=== PATIENT | female | born 1960 | race Caucasian/White ===

== ENCOUNTER 2017-04-13 14:09 | Emergency (ER) | payer BC ==
[~2017-04-13] VITALS: Ht 170.2 cm; Wt 145.2 kg
--- OUTSIDE RECORDS SUMMARY | 2017-04-13 14:16 | External Medical Summary Rpt ---
Author Author [employer] Organization [employer] Address Unknown Phone Unavailable Purpose Continuity of Care Document - through 2016
--- OUTSIDE RECORDS SUMMARY | 2017-04-13 14:16 | External Medical Summary Rpt ---
Author Author DK Address Unknown Phone [email or web address] Purpose Continuity of Care Document - 02-14-2017 through 2016 Problems Code Diagnosis DOS Provider Status I89.0 LYMPHEDEMA, 02-14-2017 NOT ELSEWHERE CLASSIFIED R60.9 EDEMA, 02-14-2017 UNSPECIFIED
--- OUTSIDE RECORDS SUMMARY | 2017-04-13 14:16 | External Medical Summary Rpt ---
Author Author DK Address Unknown Phone [email or web address] Purpose Continuity of Care Document - 02-14-2017 through 2016 Problems Code Diagnosis DOS Provider Status I89.0 LYMPHEDEMA, 02-14-2017 NOT ELSEWHERE CLASSIFIED R60.9 EDEMA, 02-14-2017 UNSPECIFIED
--- OUTSIDE RECORDS SUMMARY | 2017-04-13 14:17 | External Medical Summary Rpt ---
Author Author DK Chavarria, [employer] Organization [employer] Address Unknown Phone Unavailable
--- OUTSIDE RECORDS SUMMARY | 2017-04-13 14:17 | External Medical Summary Rpt ---
Demographics Preferred Language Chinese Marital Status Unknown Islam Affiliation Unknown Race Unknown Ethnic Group Unknown Author Author , DK ROOT Address Unknown Phone Immunization Unable to retrieve immunization data due to connection failure with Immunization Registry. Please try again later.
--- OUTSIDE RECORDS SUMMARY | 2017-04-13 14:17 | External Medical Summary Rpt ---
Demographics Preferred Language Wolof Marital Status Unknown Latter Day Affiliation Unknown Race Unknown Ethnic Group Unknown Author Author , DK ROOT Address Unknown Phone Immunization Unable to retrieve immunization data due to connection failure with Immunization Registry. Please try again later.
--- NOTE | 2017-04-13 14:57 | Urgent Treatment Center Report ---
History of Present Issue Date/Time Seen by Provider 04/13/17 1428 Visit Reason Pt arrived:Walked Presenting Problem:PT STATES POISON CLAUDIA TO FOREHEAD AND LEFT WRIST Location if Accident: Onset of symptoms date/time:/ or onset unknown for:MEDICAL HX UNKNOWN Have you (or family members/close friends) recently traveled outside the [place]? N If Yes, where/when: Have you had exposure to infectious disease within the past month? TB? Other? Specify: Patient state that she recently was working outside and she got into some weeds statse that she noticed that she was having poison claudia on her forehead, wrist and now today she noticed it on her legs states that she got worried where the poison claudia was close to her eye brow area that it would get into her eye so she came in to get treated ALLERGIES Coded Allergies: latex (04/13/17) Home Medications Reported Medications No Known Home Medications History Medical History General CAD? No Angina: No [place]: No Hypertension? No Hyperlipidemia? No CHF? No DVT? No PE? No COPD? No Asthma? No Anemia? No GERD? No Gastric ulcers? No GI Bleed? No Hernia? No Thyroid Problems? No Hypothyroidism? No CVA? No Seizures? No Diabetes? No Renal Insuffiency? No UTI? No Stones? No BPH? No GB Disease: No Nephritic Syndrome? No Asplenia? No Hepatitis? No Sickle Cell Disease? No Arthritis? No Migraines? No Cataracts? No Glaucoma? No MRSA? No HIV? No TB? No Anxiety? No Depression? No Cancer? 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 No: respiratory distress. Cardiovascular normal exam, regular rate/rhythm, no peripheral edema, no gallop Neurologic alert, [employer] II-XII nml as tested, normal exam, no motor/sensory deficits, oriented x 3 Skin Raised fluid filled itchy rash like that seen with poison claudia on forehead wrist and legs Medical Decision Making LABS/Meds/Orders Pt receiving controlled substance in ED? No Results/Orders Current Medication Orders Sig/Avinash Start time Last Medication Dose Route Stop Time Status Admin Methylprednisolone 0 .STK-MED ONE 04/13 1446 DC Sodium Succinate .ROUTE Methylprednisolone 125 MG ONCE ONE 04/13 1445 DC Sodium Succinate IM 04/13 1446 Departure Departure Time of Disposition 1444 Disposition DC Home or Self Care(routine) Clinical Impression Primary Impression: Poison claudia dermatitis Condition STABLE Referrals CLEMENTINE FRAIRE (Family): 3 Days-Call Office if no improvement in symptoms Patient Instructions DI for Poison Claudia Allergy Additional Instructions Keep area clean and dry Do not scratch the area as this will only lead to the poison claudia rash spreading Aveeno oatmeal bath will help to dry the rash up and help with itching by soothing the skin and the rash Calamine lotion will help with itching and drying of the rash Follow up with family doctor Return if needed Discharge Counseling Counseled pt/family regarding diagnosis, test results, medications/RX, home care, follow up needs Prescriptions Current Visit Scripts No Known Home Medications at 8325
[2017-04-13 15:05] VITALS: BP 160/83
== END 2017-04-13 15:05 | disposition home or self-care (01) ==
LOC: UTC 14:09
DX: L23.7 Allergic contact dermatitis due to plants, except food (principal)